=== PATIENT | male | born 1965 | race Caucasian/White ===

== ENCOUNTER 2019-01-01 06:15 | Emergency (ER) | payer OTHER ==
--- NOTE | 2019-01-01 08:09 | EDM.PDOC ---
ED HPI GENERAL MEDICAL PROBLEM - General Chief Complaint: Upper Extremity Injury/Pain Stated Complaint: LEFT SHOULDER & WRIST INJURY Time Seen by Provider: 01/01/19 07:23 Source of Information: Reports: Patient, RN Notes Reviewed - History of Present Illness INITIAL COMMENTS - FREE TEXT/NARRATIVE: 53-year-old male tripped and fell last evening. He fell forward injuring his left wrist and his left shoulder. He was hoping the pain would go away but today the left wrist is still sore and having left shoulder pain much worse with motion. It is slightly injure his right mouth but no head or neck injury. There was no LOC. Left Shoulder Pain Score (Numeric/FACES): 5 - Related Data Allergies Allergy/AdvReac Type Severity Reaction Status Date / Time No Known Allergies Allergy Verified 01/01/19 06:54 Home Meds: Home Meds Lisinopril 40 mg PO 01/01/19 [History] Metoprolol Succinate [Toprol XL] 25 mg PO DAILY 01/01/19 [History] Pravastatin [Pravachol] 01/01/19 [History] hydroCHLOROthiazide [Hydrochlorothiazide] 01/01/19 [History] Review of Systems - Review of Systems Review Of Systems: See Below Constitutional: Reports: No Symptoms Respiratory: Denies: Shortness of Breath, Pleuritic Chest Pain Cardiovascular: Denies: Chest Pain GI/Abdominal: Denies: Abdominal Pain, Nausea, Vomiting Musculoskeletal: Reports: Shoulder Pain, Joint Pain (Left wrist). Denies: Back Pain Skin: Reports: No Symptoms Neurological: Reports: No Symptoms ED EXAM, GENERAL - Physical Exam Exam: See Below General Appearance: Alert, No Apparent Distress Head: Atraumatic. No: Facial Swelling Neck: Supple, Non-Tender Respiratory/Chest: No Respiratory Distress, Lungs Clear Cardiovascular: Regular Rate, Rhythm Extremities: Other (Moderate tenderness left anterior and lateral shoulder, no visible swelling or deformity, pain with motion, there is tenderness of the dorsal left wrist with no visible swelling or deformity, pain with motion.). No : Joint Swelling Skin Exam: Warm, Dry, Normal Color Course - Vital Signs Last Recorded V/S: Last Vital Signs Temp 98.5 F 01/01/19 06:57 Pulse 80 01/01/19 06:57 Resp 18 01/01/19 06:57 BP 151/75 H 10/19/19 06:57 Pulse Ox 96 01/01/19 06:57 - Re-Assessments/Exams Free Text/Narrative Re-Assessment/Exam: 01/01/19 09:16 X-rays show no acute fracture Departure - Departure Time of Disposition: 08:08 Disposition: Home, Self-Care 01 Condition: Fair Clinical Impression: Left wrist sprain Qualifiers: Encounter type: initial encounter Qualified Code(s): S63.502A - Unspecified sprain of left wrist, initial encounter Shoulder contusion Qualifiers: Encounter type: initial encounter Laterality: left Qualified Code(s): S40.012A - Contusion of left shoulder, initial encounter - Discharge Information Instructions: Contusion, [id number], Wrist Sprain, Adult Referrals: PCP,Not In Area [Primary Care Provider] - Forms: ED Department Discharge Additional Instructions: Advil or ibuprofen up to 3 times daily for discomfort as needed, alternate ice and heat as needed. Follow-up clinic if not much better within 5-7 days as expected.
--- NOTE | 2019-01-01 08:51 | CR ---
Left wrist: 4 views left wrist were obtained. Comparison: No previous wrist exam. Small bony density seen off the posterior triquetrum which appears well-corticated and is felt to represent an old chip fracture. No acute fracture, dislocation or other bony abnormality is seen. Small linear radiopaque foreign object is seen at the base of the thumb. Impression: 1. Old injury as noted above. 2. Small linear foreign body at the base of the thumb. 3. No acute bony abnormality is appreciated. Diagnostic code #2
--- NOTE | 2019-01-01 08:51 | CR ---
Left shoulder: 3 views of the left shoulder were obtained. Comparison: No prior shoulder study. Bony density is seen within the acromioclavicular joint either due to old injury or change from previous surgery. Glenohumeral joint shows minimal spurring off the glenoid. No fracture, dislocation or other bony abnormality is seen. Impression: 1. Slight degenerative change as noted above. 2. Nothing acute is appreciated on left shoulder exam. Diagnostic code #1
== END 2019-01-01 08:22 | disposition home or self-care (01) ==
LOC: JD.ED 06:15
DX: S63.502A Unspecified sprain of left wrist, initial encounter (principal); S40.012A Contusion of left shoulder, initial encounter; Z79.899 Other long term (current) drug therapy; W01.0XXA Fall on same level from slipping, tripping and stumbling without subsequent striking against object, initial encounter
CPT/HCPCS: 73030-26-LT; 73030-LT; 73110-26-LT; 73110-LT; 99283-25